=== PATIENT | male | born 1965 | race Caucasian/White ===

== ENCOUNTER 2020-10-22 13:48 | Emergency (ER) | payer BC ==
[~2020-10-22] VITALS: Ht 182.9 cm; Wt 93.0 kg
[~2020-10-22 13:48] MED LIST: NO MEDS; XARELTO10 MG PO
[2020-10-22] MEDS ORDERED: MUPIROCIN 2% OINT 22 GM TUBE TOP ONE (14:15)
[2020-10-22] MEDS ORDERED: TETANUS/DIPHTHERIA TOX ADULT 0.5 ML SYR IM STA (14:15)
[2020-10-22] MEDS ORDERED: LIDOCAINE HCL 1% LOCAL INJ 20 ML VIAL INJ STA (14:15)
[2020-10-22] MEDS ORDERED: TETANUS/DIPHTHERIA TOX ADULT 0.5 ML SYR ONE (14:47)
== END 2020-10-22 16:44 | disposition home or self-care (01) ==
LOC: FSED 14:10
DX: S01.01XA Laceration without foreign body of scalp, initial encounter (principal); W45.8XXA Other foreign body or object entering through skin, initial encounter; Y93.H2 Activity, gardening and landscaping; Y92.007 Garden or yard of unspecified non-institutional (private) residence as the place of occurrence of the external cause
CPT/HCPCS: 90714; 99283

== ENCOUNTER 2024-05-11 10:59 | Emergency (ER) | payer BC ==
[~2024-05-11] VITALS: Ht 182.9 cm; Wt 107.8 kg
[~2024-05-11 10:59] MED LIST changes: +AMOX TR-K CLV1 EAC2 PO; +AUGMENTIN XR 11 EACH PO; +NAPROXEN375 MG PO
[2024-05-11 12:27] VITALS: PULSE 82; RESP 18; TEMP 99; O2SAT 95
== END 2024-05-11 13:10 | disposition home or self-care (01) ==
LOC: FSED 11:05
DX: T80.89XA Other complications following infusion, transfusion and therapeutic injection, initial encounter (principal); Z86.711 Personal history of pulmonary embolism; I10 Essential (primary) hypertension
CPT/HCPCS: 99283